=== PATIENT | male | born 1990 | race Two or more races ===

== ENCOUNTER 2018-01-02 10:50 | Emergency (ER) | payer MEDICAID ==
[~2018-01-02] VITALS: Ht 162.6 cm; Wt 78.2 kg
[2018-01-02] MEDS ORDERED: CEPHALEXIN MONOHYDRATE 500 MG CAPSULE PO ONE (12:15)
[2018-01-02] MEDS ORDERED: LIDOCAINE HCL/PF 1% 5 ML VIAL INJ ONE (12:15)
[2018-01-02] MEDS ORDERED: HYDROCODONE/ACETAMINOPHEN 5-325 MG TABLET PO ONE (12:15)
[2018-01-02 13:06] VITALS: BP 126/83
== END 2018-01-02 13:07 | disposition home or self-care (01) ==
LOC: EMS 10:51
DX: L02.11 Cutaneous abscess of neck (principal); J45.909 Unspecified asthma, uncomplicated; F12.90 Cannabis use, unspecified, uncomplicated
CPT/HCPCS: 10060; 99283; J3490